=== PATIENT | female | born 1975 | race Caucasian/White ===

== ENCOUNTER 2020-01-18 18:10 | Emergency (ER) | payer MEDICARE, OTHER ==
[2020-01-18 20:04] LABS: ABS Eosinophils 0.2 10^3/ul (0-0.6); ABS Lymphocytes 1.6 10^3/ul (1.0-4.8); ABS Monocytes 0.7 10^3/ul (0-0.8); Eosinophil % 3.8 %; Hematocrit 32 % (35-47); Hemoglobin 10.6 g/dL (12.0-16.0); Lymphocyte % 23.9 %; Mean Corpuscular HGB Conc 33 g/dL (31-36); Mean Corpuscular Hemoglobin 29 pg (27-31); Mean Corpuscular Volume 89 fL (80-97); Mean Platelet Volume 7.5 fL (7.4-10.4); Platelet Count 245 10^3/uL (150-450); Red Blood Count 3.65 10^6 /uL (3.70-4.87); Red Cell Distribution Width 15 % (10-15); White Blood Count 6.5 10^3/uL (3.5-10.8)
--- NOTE | 2020-01-18 20:04 | ED ---
Back Pain - HPI Summary HPI Summary: 44 year old female presents to the ED with a chief complaint of lower back pain that radiates to her groin and right leg, starting several days ago but worse since this morning. Patient's lower back pain is shooting, radiating down her right leg. She also reports coughing, SOB, hematochezia, anxiety, urinary incontinence, and RLE edema, ecchymosis, and pain. She reports difficulty ambulating due to the pain. Patient has a history of sciatica. PSHx of gastric bipass 12 years ago. Home Medications Medication Instructions Recorded Confirmed Type predniSONE [Prednisone 20 MG TAB] 40 mg PO DAILY 5 Days #10 tablet 01/18/20 Rx - History of Current Complaint Chief Complaint: EDBackInjuryPain Stated Complaint: SOB/WEAKNESS Time Seen by Provider: 01/18/20 19:23 Hx Obtained From: Patient Onset/Duration: Lasting Days, Still Present, Worse Since - Last night Onset/Duration: Started Days Ago, Still Present Timing: Constant Back Pain Location: Radiates To - Right LE Severity Initially: Moderate Severity Currently: Severe Pain Intensity: 10 Pain Scale Used: 0-10 Numeric Character: Sharp, Spasmodic Aggravating Symptom(s): Movement, Walking Associated Signs And Symptoms: Positive: Swelling, Bruising, Bladder Incontinence, Pain with Weight Bearing - Allergies/Home Medications Allergies/Adverse Reactions: Allergies Allergy/AdvReac Type Severity Reaction Status Date / Time No Known Allergies Allergy Verified 01/18/20 18:16 Home Medications: Home Medications predniSONE [Prednisone 20 MG TAB] 40 mg PO DAILY 5 Days #10 tablet 01/18/20 [Rx] PMH/Surg Hx/FS Hx/Imm Hx GI History: Reports: Hx Obstructive Bowel Musculoskeletal History: Reports: Other Musculoskeletal History - Sciatica - Surgical History Surgical History: Yes Surgery Procedure, Year, and Place: Gastric Bipass 12 years ago Infectious Disease History: No Infectious Disease History: Denies: Traveled Outside the [place] in Last 30 Days - Family History Known Family History: Positive: Non-Contributory - Social History Alcohol Use: None Substance Use Type: Reports: None Smoking Status (MU): Former Smoker Review of Systems Positive: Shortness Of Breath, Cough, Other - hematochezia Positive: incontinence - urinary Positive: Myalgia - lower back, groin, and right leg pain, Edema Positive: Anxious All Other Systems Reviewed And Are Negative: Yes Physical Exam - Summary Physical Exam Summary: Appearance: Well-appearing, obese. Standing up and ambulating without obvious limp. Skin: Warm, dry, no obvious rash Eyes: sclera anicteric, no conjunctival pallor HENT: mucous membranes moist, pharynx appears normal Neck: Supple, nontender Respiratory: Clear to auscultation, no signs of respiratory distress Cardiovascular: Normal S1, S2. No murmurs. Normal distal pulses in tibial and radial bilaterally. Abdomen: Obese. Soft, nontender, normal active bowel sounds present Musculoskeletal: There is normal strength in dorsi- and plantarflexion of the feet. Normal sensation of the groin and perineal areas. Trace edema bilaterally. Neurological: A&Ox3, awake and alert, mentation is normal, speech is fluent and appropriate. There is no clonus or other abnormal reflexes at the knees or ankles. Psychiatric: affect is normal, does not appear anxious or depressed Triage Information Reviewed: Yes Vital Signs On Initial Exam: Initial Vitals Temp Pulse Resp BP Pulse Ox 98.1 F 91 20 145/72 98 01/18/20 18:12 01/18/20 18:12 01/18/20 18:12 01/18/20 18:12 01/18/20 18:12 Vital Signs Reviewed: Yes Procedures - Sedation Patient Received Moderate/Deep Sedation with Procedure: No Diagnostics - Vital Signs Vital Signs Temp Pulse Resp BP Pulse Ox 01/18/20 18:12 98.1 F 91 20 145/72 98 - Laboratory Result Diagrams: 01/18/20 19:51 01/18/20 19:51 Lab Statement: Any lab studies that have been ordered have been reviewed, and results considered in the medical decision making process. - Radiology CXR Radiology Interpretation Completed By: ED Physician Summary of Radiographic Findings: No acute processes. An ED physician has reviewed this report. Pending official read. - Ultrasound Venous doppler Ultrasound Interpretation Completed By: Radiologist Summary of Ultrasound Findings: IMPRESSION: Negative left lower extremity venous duplex exam without evidence of deep venous thrombosis. An ED physician has reviewed this report. Back Pain Course/Dx - Course Course Of Treatment: 44 year old female presents to the ED with a chief complaint of lower back pain that radiates to her groin and right leg, starting several days ago but worse since this morning. Patient's lower back pain is shooting, radiating down her right leg. She also reports coughing, SOB, hematochezia, anxiety, urinary incontinence, and RLE edema, ecchymosis, and pain. She reports difficulty ambulating due to the pain. Patient has a history of sciatica. PSHx of gastric bipass 12 years ago. Physicial exam reveals reduced strength on leg raise of RLE, but normal ambulation without obvious limp. CXR shows no acute processes. Lab shows RBC 3.65, Hgb 10.6, Hct 32, BUN/ Creatinine Ration 20.2, Glucose 61, C reactive protein 100.31, total protein 5.8 , urine specific gravity 1.006, leukocyte esterase 1+, Urine bacteria 1+, and urine ascorbic acid present. Negative left lower extremity venous duplex exam without evidence of deep venous thrombosis. Chest XR is unremarkable. Diagnosis is sciatica and acute bronchitis. During ED course the patient was given cyclobenzaprine, duloxetine, gabapentin, ibuprofen, prazosin, prednisone, quetiapine, topiramate, and trazodone. Patient will be discharged home, with follow up in 2-3 days by PCP. Patient understands and agrees with the plan. - Diagnoses Provider Diagnoses: Acute bronchitis, Sciatica Discharge ED - Sign-Out/Discharge Documenting (check all that apply): Patient Departure - discharge home - Discharge Plan Condition: Good Disposition: HOME Prescriptions: predniSONE [Prednisone 20 MG TAB] 40 mg PO DAILY 5 Days #10 tablet Patient Education Materials: Sciatica (ED), Acute Bronchitis (ED) Referrals: [facility] [Outside] - 3 Days (if not improving) Additional Instructions: We did not find any evidence of a serious back or infectious problem on the testing we did tonight. I am going to keep you on the prednisone for a few days , that may help somewhat with the sciatica. Otherwise you can take OTC cough and cold preparations. - Billing Disposition and Condition Condition: GOOD Disposition: Home - Attestation Statements Document Initiated by Scribe: Yes Documenting Scribe: Jose Britton Provider For Whom Jeancarlos is Documenting (Include Credential): Dr. Aravind Aparicio Scribe Attestation: I, Jose Britton, scribed for Dr. Aravind Aparicio on 01/20/20 at 0209. Scribe Documentation Reviewed: Yes Provider Attestation: The documentation as recorded by the scribe, Jose Britton accurately reflects the service I personally performed and the decisions made by me, Dr. Aravind Aparicio Status of Jeancarlos Document: Viewed
[2020-01-18 20:16] LABS: ALT 16 U/L (7-52); AST 17 U/L (13-39); Albumin 3.6 g/dL (3.2-5.2); Albumin/Globulin Ratio 1.6 (1-3); Alkaline Phosphatase 73 U/L (34-104); Anion Gap 4 mmol/L (2-11); BUN/Creatinine Ratio 20.2 (8-20); Blood Urea Nitrogen 18 mg/dL (6-24); C Reactive Protein 100.31 mg/L (<8.01); CO2 Carbon Dioxide 24 mmol/L (22-32); Calcium 9.1 mg/dL (8.6-10.3); Chloride 104 mmol/L (101-111); EGFR Non-African American 68.6 (>60); Globulin 2.2 g/dL (2-4); Glucose 61 mg/dL (70-100); Potassium 5.1 mmol/L (3.5-5.0); Sodium 132 mmol/L (135-145); Total Protein 5.8 g/dL (6.4-8.9)
[2020-01-18 20:19] LABS: Alcohol < 10 mg/dL (<10)
[2020-01-18 20:24] LABS: HCG Pregnancy < 0.60 mIU/mL
[2020-01-18 20:55] LABS: Urine Appearance Clear; Urine Bilirubin Negative (Negative); Urine Blood Negative (Negative); Urine Color Straw; Urine Glucose Negative (Negative); Urine Ketones Negative (Negative); Urine Nitrite Negative (Negative); Urine Protein Negative (Negative); Urine Specific Gravity 1.006 (1.010-1.030); Urine Urobilinogen Negative (Negative)
[2020-01-18] MEDS ORDERED: Ibuprofen TAB* 400 MG PO ONE (20:58)
[2020-01-18] MEDS ORDERED: Topiramate TAB(*) 25 MG PO ONE (21:45)
[2020-01-18] MEDS ORDERED: DULoxetine DR CAP* 60 MG CAP.DR PO ONE (21:45)
[2020-01-18 21:46] LABS: Urine Bacteria 1+ (Absent); Urine Red Blood Cell Trace(0-2/hpf) (Absent); Urine White Blood Cell 1+(6-10/hpf) (Absent)
[2020-01-18] MEDS ORDERED: Cyclobenzaprine TAB* 10 MG PO ONE (21:46)
[2020-01-18] MEDS ORDERED: QUEtiapine TAB* 100 MG PO ONE (21:46)
[2020-01-18] MEDS ORDERED: Gabapentin CAP(*) 400 MG PO ONE (21:46)
[2020-01-18] MEDS ORDERED: traZODone TAB* 100 MG PO ONE (21:47)
[2020-01-18 22:53] VITALS: BP 147/86
--- NOTE | 2020-01-21 10:56 | ED ---
Imaging and Labs Follow Up Follow Up Type: Imaging Labs/Culture Result: Nonaggressive sclerotic structure in the right humeral head could be consumer sales representative of an enchondroma. In the absence of interval clinical suspicion , repeat right shoulder radiograph in 3 months to document stability. Imaging Result: finding consumer sales representative of requiring repeat xray Called [facility] - no answer - will fax information with attention to provider Patient Communication/Plan: faxed chest pa report Provider Diagnoses: Acute bronchitis, Sciatica
--- NOTE | 2020-01-22 12:15 | ED ---
Imaging and Labs Follow Up Follow Up Type: Labs/Cultures Labs/Culture Result: Urine culture growing 50-75k e. coli. Patient Communication/Plan: Pt. seen for back pain. No report of urinary sxs. Inpt. at [facility]. I called and spoke with nurse at [facility] and she notes pt. was dc this morning. Provider Diagnoses: Acute bronchitis, Sciatica
== END 2020-01-18 22:52 | disposition home or self-care (01) ==
LOC: ED 18:10
DX: M54.41 Lumbago with sciatica, right side (principal); J20.9 Acute bronchitis, unspecified; R60.0 Localized edema; R32 Unspecified urinary incontinence; Z87.891 Personal history of nicotine dependence
CPT/HCPCS: 36415; 71046; 80053; 80320; 81003; 81015; 84702; 85025; 86140; 87077; 87086; 87186; 93005; 99284; A9270-GY; G0480; J7512